=== PATIENT | female | born 1935 | race Caucasian/White ===

== ENCOUNTER 2022-10-06 12:57 | Inpatient (IN) | payer MEDICARE ==
[~2022-10-06 12:57] MED LIST: Iopamidol 300 61% 100 ML VIAL FS ONE
[2022-10-06 15:10] LABS: #Monocytes 0.5 10x3/uL (0.0-1.1); #Neutrophils 4.7 10x3/uL (1.5-8.4); %Basophils 0.3 % (0.0-2.0); %Eosinophils 0.2 % (0.0-6.0); %Lymphocytes 11.9 % (18.0-47.0); %Monocytes 7.7 % (0.0-10.0); %Neutrophils 79.4 % (40.0-75.0); Mean Corpuscular HGB CONC 34.6 g/dL (32.0-36.0); Mean Corpuscular Volume 92.7 fl (81.6-98.3); Mean Platelet Volume 9.8 fl (7.4-10.4); Platelet Count 213 10x3/uL (150-450); RBC Distribution Width 12.6 % (11.5-14.5); Red Blood Cell (RBC) Count 4.37 10x6/uL (3.90-5.03)
[2022-10-06] MEDS ORDERED: Fentanyl 100 MCG/2 ML VIAL ONE (15:10)
[2022-10-06 15:32] LABS: ALT (SGPT) 21 U/L (8-55); AST (SGOT) 21 U/L (5-34); Albumin 3.8 g/dL (3.4-4.8); Alkaline Phosphatase 90 U/L (40-110); Anion Gap 15 mmol/L (10-20); BUN (Urea Nitrogen) 17 mg/dL (9.8-20.1); Bilirubin, Total 0.8 mg/dL (0.2-1.2); Calc. Creatinine Clearance 0 mL/min (70-130); Calcium 8.9 mg/dL (7.8-10.44); Carbon Dioxide 23 mmol/L (23-31); Chloride 101 mmol/L (98-107); Estimated GFR 84; Globulin 2.4 g/dL (2.4-3.5); Glucose 93 mg/dL (83-110); Lipase 16 U/L (8-78); Protein, Total 6.2 g/dL (5.8-8.1); Sodium 135 mmol/L (136-145)
[2022-10-06 16:16] LABS: Bilirubin Neg (Negative); Blood, Urine Negative (Negative); Clarity Clear (Clear); Glucose, Urine (Dipstick) Normal (Negative); Ketone, Urine 15 mg/dL (Negative); Leukocyte Negative (Negative); Nitrite Negative (Negative); Protein, Urine (Dipstick) Negative (Neg-Trace); Urobilinogen Normal mg/dL (Less than 2)
[2022-10-06] MEDS ORDERED: Senokot S 8.6-50 MG TAB PO PRN (21:00)
[2022-10-06] MEDS ORDERED: Acetaminophen 325 MG TAB PO PRN (21:00)
[2022-10-06] MEDS ORDERED: Calcium Carbonate 500 MG ChewTAB PO PRN (21:00)
[2022-10-06] MEDS ORDERED: Ondansetron PF 4 MG/2 ML Vial IVP PRN (21:00)
[2022-10-06] MEDS ORDERED: Fentanyl 100 MCG/2 ML VIAL SLOW IVP PRN (21:04)
[2022-10-06] MEDS ORDERED: Ketorolac Tromethamine 30 MG/ML VIAL IVP SCH (22:15)
[2022-10-06] MEDS ORDERED: Gabapentin 100 MG CAP PO SCH (22:15)
[2022-10-06 23:17] LABS: SARS-CoV-2 NAA Rapid Test Not Detected (NotDetected)
[2022-10-06] MEDS ORDERED: Ketorolac Tromethamine 30 MG/ML VIAL ONE (23:20)
[2022-10-06] MEDS: Lidocaine 5% Patch TD SCH (23:35)
[2022-10-07] MEDS: Ibuprofen 200 MG TAB PO SCH ×2 (05:34→17:27)
[2022-10-07] MEDS ORDERED: Multivitamin W/ Minerals 1 TAB ONE (08:26)
[2022-10-07] MEDS ORDERED: Calcium Carbonate 500 MG ChewTAB ONE (08:26)
[2022-10-07] MEDS ORDERED: Aspirin 81 mg Enteric Coated Tablet ONE (08:26)
[2022-10-07] MEDS ORDERED: Cholecalciferol 1,000 UNITS (25 MCG) TAB ONE (08:30)
[2022-10-07] MEDS ORDERED: rOPINIRole HCl 1 MG TAB PO SCH ×2 (09:00→11:00)
[2022-10-07] MEDS ORDERED: rOPINIRole HCl 2 MG TAB PO SCH (09:00)
[2022-10-07] MEDS ORDERED: Atenolol 25 MG TAB PO SCH (09:00)
[2022-10-07] MEDS: Multivitamin W/ Minerals 1 TAB PO SCH (09:30)
[2022-10-07] MEDS: Polyethylene Glycol 3350 17 GM Packet PO SCH (09:30)
[2022-10-07] MEDS: Gabapentin 100 MG CAP PO SCH ×2 (09:30→20:27)
[2022-10-07] MEDS: Aspirin 81 mg Enteric Coated Tablet PO SCH (09:30)
[2022-10-07] MEDS: Oxybutynin ER 5 MG TAB PO SCH (09:30)
[2022-10-07] MEDS: Atenolol 25 MG TAB PO SCH (09:30)
[2022-10-07] MEDS: Spironolactone 25 MG TAB PO SCH (09:30)
[2022-10-07] MEDS: Cholecalciferol 1,000 UNITS (25 MCG) TAB PO SCH (09:30)
[2022-10-07] MEDS ORDERED: Senokot 8.6 MG TAB PO PRN (09:35)
[2022-10-07] MEDS: Calcium Carbonate 600 MG TAB PO SCH (09:47)
[2022-10-07] MEDS: Lisinopril 2.5 MG TAB PO SCH (09:52)
[2022-10-07] MEDS ORDERED: Acetaminophen 325 MG TAB ONE (10:09)
[2022-10-07 10:34] VITALS: BMI 27.4
[2022-10-07] MEDS: Fluticasone Propionate Nasal Spray 16 gm Bottle NASAL SCH (15:54)
[2022-10-07] MEDS: rOPINIRole HCl 1 MG TAB PO SCH ×2 (16:02→20:21)
[2022-10-07] MEDS: LIDOCAINE Patch Removal TOP SCH (17:25)
[2022-10-07] MEDS: Lidocaine 5% Patch TD SCH (20:22)
[2022-10-07] MEDS: HYDROcodone/Acetaminophen 5/325 mg Tablet PO PRN (22:15)
[2022-10-08] MEDS: HYDROcodone/Acetaminophen 5/325 mg Tablet PO PRN ×3 (03:49→23:05)
[2022-10-08] MEDS: Melatonin 3 MG TAB PO PRN ×2 (03:50→21:33)
[2022-10-08] MEDS: Spironolactone 25 MG TAB PO SCH (10:11)
[2022-10-08] MEDS: Aspirin 81 mg Enteric Coated Tablet PO SCH (10:11)
[2022-10-08] MEDS: Polyethylene Glycol 3350 17 GM Packet PO SCH (10:13)
[2022-10-08] MEDS: Lisinopril 2.5 MG TAB PO SCH (10:13)
[2022-10-08] MEDS: Gabapentin 100 MG CAP PO SCH ×2 (10:15→21:31)
[2022-10-08] MEDS: Cholecalciferol 1,000 UNITS (25 MCG) TAB PO SCH (10:16)
[2022-10-08] MEDS: rOPINIRole HCl 1 MG TAB PO SCH ×3 (10:16→21:32)
[2022-10-08] MEDS: Multivitamin W/ Minerals 1 TAB PO SCH (10:16)
[2022-10-08] MEDS: Atenolol 25 MG TAB PO SCH (10:16)
[2022-10-08] MEDS: Fluticasone Propionate Nasal Spray 16 gm Bottle NASAL SCH (10:17)
[2022-10-08] MEDS: LIDOCAINE Patch Removal TOP SCH (10:30)
[2022-10-08] MEDS: Oxybutynin ER 5 MG TAB PO SCH (13:02)
[2022-10-08] MEDS: Calcium Carbonate 600 MG TAB PO SCH (13:11)
[2022-10-08] MEDS: Lidocaine 5% Patch TD SCH (21:33)
[2022-10-09 07:51] VITALS: TEMP 98.4
[2022-10-09] MEDS: Gabapentin 100 MG CAP PO SCH (09:24)
[2022-10-09] MEDS: Atenolol 25 MG TAB PO SCH (09:24)
[2022-10-09] MEDS: Multivitamin W/ Minerals 1 TAB PO SCH (09:24)
[2022-10-09] MEDS: rOPINIRole HCl 1 MG TAB PO SCH (09:24)
[2022-10-09] MEDS: Cholecalciferol 1,000 UNITS (25 MCG) TAB PO SCH (09:24)
[2022-10-09] MEDS: Aspirin 81 mg Enteric Coated Tablet PO SCH (09:24)
[2022-10-09] MEDS: Lisinopril 2.5 MG TAB PO SCH (09:26)
[2022-10-09] MEDS: Fluticasone Propionate Nasal Spray 16 gm Bottle NASAL SCH (09:26)
[2022-10-09] MEDS: Spironolactone 25 MG TAB PO SCH (09:27)
[2022-10-09] MEDS: Polyethylene Glycol 3350 17 GM Packet PO SCH (09:27)
[2022-10-09] MEDS: Calcium Carbonate 600 MG TAB PO SCH (09:27)
[2022-10-09] MEDS: Oxybutynin ER 5 MG TAB PO SCH (09:33)
[2022-10-09] MEDS: HYDROcodone/Acetaminophen 5/325 mg Tablet PO PRN (11:24)
[2022-10-09] MEDS: LIDOCAINE Patch Removal TOP SCH (12:13)
[2022-10-09 12:52] VITALS: BP 176/82
== END 2022-10-09 12:30 | DRG 552 ==
LOC: CSHERS 12:57 → CSHERHOLD 21:40 → UNDOADMOB 21:40 → CSHTELE 10-07 14:49 → CSHERHOLD 10-07 14:49 → CSHTELE 10-08 17:17 → UNDODISOB 10-08 17:45 → OBSVTOIN 10-09 08:57 → INTOOBSV 10-09 08:57
PROVIDERS: ADMIT Student in an Organized Health Care Education/Training Program; ATTEND Family Medicine
DX: M54.16 Radiculopathy, lumbar region (principal); I42.8 Other cardiomyopathies; K86.2 Cyst of pancreas; J98.11 Atelectasis; Z20.822 Contact with and (suspected) exposure to COVID-19; R53.81 Other malaise; Z66 Do not resuscitate; I25.10 Atherosclerotic heart disease of native coronary artery without angina pectoris; G25.81 Restless legs syndrome; G47.33 Obstructive sleep apnea (adult) (pediatric); Z60.2 Problems related to living alone; K21.9 Gastro-esophageal reflux disease without esophagitis; M85.80 Other specified disorders of bone density and structure, unspecified site; E78.2 Mixed hyperlipidemia; I48.0 Paroxysmal atrial fibrillation; G89.4 Chronic pain syndrome; E78.00 Pure hypercholesterolemia, unspecified; I50.9 Heart failure, unspecified; I11.0 Hypertensive heart disease with heart failure; G62.9 Polyneuropathy, unspecified; K44.9 Diaphragmatic hernia without obstruction or gangrene; Z88.6 Allergy status to analgesic agent; Z88.8 Allergy status to other drugs, medicaments and biological substances; Z79.82 Long term (current) use of aspirin; Z79.899 Other long term (current) drug therapy; Z95.0 Presence of cardiac pacemaker; Z90.49 Acquired absence of other specified parts of digestive tract; Z90.710 Acquired absence of both cervix and uterus; Z82.49 Family history of ischemic heart disease and other diseases of the circulatory system
CPT/HCPCS: 51701; 71045; 74177; 80053; 81003; 83690; 84484; 85025; 93005; 94660; 94760; 96372; 96374; 96375; 96376; G0378; J1650; J1885; J2405; J3010; Q9967; U0002

== ENCOUNTER 2023-12-25 11:09 | Inpatient (IN) | payer MEDICARE ==
[2023-12-25 12:11] LABS: #Basophils 0.03 10x3/uL (0.0-0.2); #Eosinphils 0.02 10x3/uL (0.0-0.5); #Monocytes 0.55 10x3/uL (0.0-1.1); #Neutrophils 3.62 10x3/uL (1.5-8.4); %Basophils 0.6 % (0.0-2.0); %Eosinophils 0.4 % (0.0-6.0); %Lymphocytes 19.3 % (18.0-47.0); %Monocytes 10.5 % (0.0-10.0); Hematocrit 38.8 % (34.9-44.5); Hemoglobin 13.6 g/dL (12.0-15.5); Mean Corpuscular HGB CONC 35.1 g/dL (32.0-36.0); Mean Corpuscular Hemoglobin 32.2 pg (27.0-33.0); Mean Corpuscular Volume 91.9 fl (81.6-98.3); Platelet Count 214 10x3/uL (150-450); RBC Distribution Width 13.2 % (11.5-14.5); Red Blood Cell (RBC) Count 4.22 10x6/uL (3.90-5.03); White Blood Cell (WBC) Count 5.2 10x3/uL (3.5-10.5)
[2023-12-25 12:23] LABS: Anion Gap 12 mmol/L (10-20); BUN (Urea Nitrogen) 15 mg/dL (9.8-20.1); Carbon Dioxide 27 mmol/L (23-31); Chloride 96 mmol/L (98-107); Sodium 131 mmol/L (136-145)
[2023-12-25 12:24] LABS: ALT (SGPT) 27 U/L (8-55); AST (SGOT) 29 U/L (5-34); Albumin 3.5 g/dL (3.4-4.8); Alkaline Phosphatase 106 U/L (40-110); Bilirubin, Total 0.9 mg/dL (0.2-1.2); Calc. Creatinine Clearance 0 mL/min (70-130); Calcium 9.2 mg/dL (7.8-10.44); Estimated GFR 84; Globulin 2.6 g/dL (2.4-3.5); Glucose 111 mg/dL (83-110); Protein, Total 6.1 g/dL (5.8-8.1)
[2023-12-25 12:28] LABS: Troponin I Less than 0.010 ng/mL (< 0.028)
[2023-12-25] MEDS ORDERED: Furosemide 40 MG (4 mL) VIAL ONE (14:13)
[2023-12-25] MEDS ORDERED: Nitroglycerin 2% Ointment 1 INCH/1 GM Packet ONE (14:13)
[2023-12-25] MEDS ORDERED: Acetaminophen 325 MG TAB PO PRN (15:04)
[2023-12-25] MEDS ORDERED: Ondansetron PF 4 MG/2 ML Vial IVP PRN (15:04)
[2023-12-25] MEDS ORDERED: Acetaminophen 650 MG Suppository PR PRN (15:04)
[2023-12-25 15:32] LABS: Troponin I Less than 0.010 ng/mL (< 0.028)
[2023-12-25 18:51] LABS: Troponin I 0.012 ng/mL (< 0.028)
[2023-12-25] MEDS: rOPINIRole HCl 0.25 MG TAB PO SCH (19:55)
[2023-12-25] MEDS: Atenolol 25 MG TAB PO SCH (20:08)
[2023-12-25] MEDS: Fluticasone Propionate Nasal Spray 16 gm Bottle NASAL SCH (21:10)
[2023-12-25] MEDS: Acetaminophen 500 MG TAB PO PRN (21:41)
[2023-12-26 04:08] LABS: #Basophils 0.02 10x3/uL (0.0-0.2); #Eosinphils 0.03 10x3/uL (0.0-0.5); #Monocytes 0.57 10x3/uL (0.0-1.1); #Neutrophils 3.04 10x3/uL (1.5-8.4); %Basophils 0.4 % (0.0-2.0); %Eosinophils 0.6 % (0.0-6.0); %Lymphocytes 32.1 % (18.0-47.0); %Monocytes 10.6 % (0.0-10.0); %Neutrophils 56.3 % (40.0-75.0); Hematocrit 40.2 % (34.9-44.5); Hemoglobin 14.2 g/dL (12.0-15.5); Mean Corpuscular HGB CONC 35.3 g/dL (32.0-36.0); Mean Corpuscular Hemoglobin 31.8 pg (27.0-33.0); Mean Corpuscular Volume 90.1 fl (81.6-98.3); Mean Platelet Volume 9.4 fl (7.4-10.4); Platelet Count 231 10x3/uL (150-450); RBC Distribution Width 13.1 % (11.5-14.5); Red Blood Cell (RBC) Count 4.46 10x6/uL (3.90-5.03); White Blood Cell (WBC) Count 5.4 10x3/uL (3.5-10.5)
[2023-12-26 04:17] LABS: Anion Gap 11 mmol/L (10-20); BUN (Urea Nitrogen) 11 mg/dL (9.8-20.1); Calc. Creatinine Clearance 54 mL/min (70-130); Calcium 8.8 mg/dL (7.8-10.44); Carbon Dioxide 28 mmol/L (23-31); Chloride 96 mmol/L (98-107); Estimated GFR 85; Glucose 86 mg/dL (83-110); Potassium 4.1 mmol/L (3.5-5.1); Sodium 131 mmol/L (136-145)
[2023-12-26] MEDS: Furosemide 40 MG (4 mL) VIAL SLOW IVP SCH (07:02)
[2023-12-26] MEDS: Spironolactone 25 MG TAB PO SCH (07:03)
[2023-12-26] MEDS: Lisinopril 2.5 MG TAB PO SCH (09:48)
[2023-12-26] MEDS: Enoxaparin 40 MG (0.4 mL) SYRINGE SC SCH (09:48)
[2023-12-26] MEDS: Aspirin 81 mg Enteric Coated Tablet PO SCH (09:48)
[2023-12-26] MEDS: CeleCOXIB 100 MG CAP PO SCH (09:49)
[2023-12-26] MEDS: Pantoprazole DR 40 MG TAB PO SCH (09:50)
[2023-12-26] MEDS: Oxybutynin ER 5 MG TAB PO SCH (09:54)
[2023-12-26 10:08] VITALS: BMI 29.8
[2023-12-26] MEDS ORDERED: PROPOFOL 200 MG/20 ML VIAL ONE (13:00)
[2023-12-26] MEDS ORDERED: Lidocaine 1% (PF) 30 ML VIAL ONE (13:00)
[2023-12-26] MEDS: Empagliflozin 10 MG TAB PO SCH (14:35)
[2023-12-27] MEDS: Loperamide HCl 2 MG CAP PO SCH (04:44)
[2023-12-27 05:12] LABS: #Basophils 0.02 10x3/uL (0.0-0.2); #Eosinphils 0.04 10x3/uL (0.0-0.5); #Monocytes 0.73 10x3/uL (0.0-1.1); #Neutrophils 3.74 10x3/uL (1.5-8.4); %Basophils 0.4 % (0.0-2.0); %Eosinophils 0.7 % (0.0-6.0); %Lymphocytes 19.8 % (18.0-47.0); %Monocytes 12.9 % (0.0-10.0); Hematocrit 42.1 % (34.9-44.5); Mean Corpuscular HGB CONC 35.6 g/dL (32.0-36.0); Mean Corpuscular Hemoglobin 32.3 pg (27.0-33.0); Mean Corpuscular Volume 90.7 fl (81.6-98.3); Mean Platelet Volume 9.2 fl (7.4-10.4); Platelet Count 221 10x3/uL (150-450); RBC Distribution Width 13.3 % (11.5-14.5); Red Blood Cell (RBC) Count 4.64 10x6/uL (3.90-5.03); White Blood Cell (WBC) Count 5.7 10x3/uL (3.5-10.5)
[2023-12-27 05:19] LABS: Anion Gap 12 mmol/L (10-20); BUN (Urea Nitrogen) 13 mg/dL (9.8-20.1); Calc. Creatinine Clearance 57 mL/min (70-130); Calcium 9.1 mg/dL (7.8-10.44); Carbon Dioxide 26 mmol/L (23-31); Chloride 100 mmol/L (98-107); Estimated GFR 84; Glucose 89 mg/dL (83-110); Sodium 134 mmol/L (136-145)
[2023-12-27] MEDS: Empagliflozin 10 MG TAB PO SCH (08:28)
[2023-12-28] MEDS: Melatonin 3 MG TAB PO SCH (03:02)
[2023-12-28] MEDS: Ibuprofen 200 MG TAB PO SCH (07:10)
[2023-12-28] MEDS: Magnesium Oxide 400 MG TAB PO SCH (07:11)
[2023-12-28] MEDS ORDERED: Furosemide 40 MG (4 mL) VIAL SLOW IVP SCH (09:00)
[2023-12-28] MEDS: Ondansetron ODT 4 MG TAB PO PRN (09:34)
[2023-12-28] MEDS: Loperamide HCl 2 MG CAP PO PRN (11:54)
[2023-12-28] MEDS: Furosemide 40 MG TAB PO SCH (12:23)
[2023-12-29 03:54] LABS: Magnesium 2.3 mg/dL (1.6-2.6)
[2023-12-29 10:52] LABS: Anion Gap 13 mmol/L (10-20); BUN (Urea Nitrogen) 17 mg/dL (9.8-20.1); Calc. Creatinine Clearance 0 mL/min (70-130); Calcium 9.5 mg/dL (7.8-10.44); Carbon Dioxide 28 mmol/L (23-31); Chloride 101 mmol/L (98-107); Estimated GFR 83; Glucose 127 mg/dL (83-110); Potassium 4.5 mmol/L (3.5-5.1); Sodium 137 mmol/L (136-145)
[2023-12-30] MEDS: Spironolactone 25 MG TAB PO SCH (12:11)
[2023-12-30] MEDS: Furosemide 20 MG TAB PO SCH (12:11)
[2023-12-30] MEDS: rOPINIRole HCl 2 MG TAB PO SCH (17:00)
[2023-12-30] MEDS ORDERED: Melatonin 3 MG TAB PO PRN (22:04)
[2023-12-31 05:14] LABS: Anion Gap 13 mmol/L (10-20); BUN (Urea Nitrogen) 23 mg/dL (9.8-20.1); Calc. Creatinine Clearance 60 mL/min (70-130); Calcium 9.3 mg/dL (7.8-10.44); Carbon Dioxide 26 mmol/L (23-31); Chloride 100 mmol/L (98-107); Estimated GFR 85; Glucose 88 mg/dL (83-110); Potassium 4.2 mmol/L (3.5-5.1); Sodium 135 mmol/L (136-145)
[2023-12-31 06:15] LABS: Troponin I 0.012 ng/mL (< 0.028)
[2023-12-31 08:55] VITALS: BP 116/58; TEMP 98.6
== END 2023-12-31 12:15 | DRG 291 ==
LOC: CSHERS 11:09 → SUATTDRO 11:09 → CSHTELE 15:46 → OBSVTOIN 12-26 16:13
PROVIDERS: ADMIT Family Medicine; ATTEND Family Medicine
DX: I11.0 Hypertensive heart disease with heart failure (principal); I50.43 Acute on chronic combined systolic (congestive) and diastolic (congestive) heart failure; M54.50 Low back pain, unspecified; Z88.5 Allergy status to narcotic agent; Z88.8 Allergy status to other drugs, medicaments and biological substances; Z79.82 Long term (current) use of aspirin; Z79.899 Other long term (current) drug therapy; Z90.49 Acquired absence of other specified parts of digestive tract; Z90.710 Acquired absence of both cervix and uterus; Z98.890 Other specified postprocedural states; I48.0 Paroxysmal atrial fibrillation; K21.9 Gastro-esophageal reflux disease without esophagitis; I25.119 Atherosclerotic heart disease of native coronary artery with unspecified angina pectoris; I34.0 Nonrheumatic mitral (valve) insufficiency; Z66 Do not resuscitate; E78.2 Mixed hyperlipidemia; K22.2 Esophageal obstruction; E55.9 Vitamin D deficiency, unspecified; K44.9 Diaphragmatic hernia without obstruction or gangrene
CPT/HCPCS: 36415; 71045; 74220; 80048; 80053; 83735; 83880; 84484; 85025; 93005; 93010; 93312; 94760; 96372; 96374; G0378; J1650; J1940; J2001; J2704; Q0162